=== PATIENT | male | born 1965 | race Caucasian/White ===

== ENCOUNTER 2016-08-28 15:53 | Emergency (ER) | payer OTHER ==
[2016-08-28 16:12] VITALS: BP 112/71; PULSE 89; RESP 16; TEMP 98.4; O2SAT 96
--- NOTE | 2016-08-28 17:05 | EDPHY ---
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 today. The centrifuge lid fell, landing on his right forearm. Denies falling. Did not strike his head. Has no neck or back pain. Denies right shoulder, right elbow , right wrist or hand pain. Reports normal strength. Reports slightly decreased sensation. No previous injury to the right hand. He is right-hand dominant. Anticoagulated on Coumadin for atrial fibrillation. INR 2.0 today. ROS: 10 point review of systems is negative other than as stated in HPI (Fallon Jacobs) Past Medical/Surgical History: Atrial fibrillation, anticoagulated on Coumadin (Fallon Jacobs) Social History: Works at [employer] (Fallon Jacobs) Physical Exam: Vital signs stable, reviewed by me General: Awake, alert, calm, cooperative. No acute distress. Head: Normalocephalic. Atraumatic. EENT: PERRLA. EOMI. Neck: Supple, nontender. No midline tenderness, full ROM. Respiratory: Breathing unlabored. CV: Chest nontender, atraumatic. Radial pulses 2+. Brisk cap refill all extremities. GI: Deferred Neuro: Alert. Oriented x 3. Sensation intact to light touch all extremities, specifically all regions of the right forearm and right hand. Strength 5+. Upper extremity DTRs 2+ biceps and brachial. Skin: Skin warm, dry, intact. No ecchymosis, abrasions, or lacerations. No hematoma. Extremities: No discomfort to palpation of the right shoulder, elbow, wrist, or hand. Full ROM. Mid Right forearm with mild tenderness anteromedially. No hematoma or significant swelling appreciated. (Fallon Jacobs) Constitutional: Initial Vital Signs Temperature (C) 36.9 C 08/28/16 16:07 Heart Rate 89 08/28/16 16:07 Respiratory Rate 16 08/28/16 16:07 Blood Pressure 112/71 08/28/16 16:07 O2 Sat (%) 96 08/28/16 16:07 O2 Delivery Mode Room Air Allergies/Adverse Reactions: latex Allergy (Verified 08/28/16 16:06) Penicillins Allergy (Verified 08/28/16 16:06) Home Medications: Medication Instructions Recorded Coumadin 08/28/16 Flonase Nasal [place]rie 08/28/16 Metoprolol Succinate 08/28/16 Medical Decision Making - Diagnostics Imaging: X-ray negative for evidence of fracture or other acute finding-reviewed by myself-final report pending at time this dictation (Fallon Jacobs) ED Course/Re-evaluation: 50-year-old male presents to emergency department having been 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 today. X-rays negative for evidence of fracture. Sensation is intact. Strength 5+. Range of motion intact right upper extremity. He is referred to occupational health as he reports decreased sensation. (Fallon Jacobs) I did not see this patient while he was in the emergency department. However his x-rays were reviewed by me and I discussed the case with the nurse practitioner while the patient was in the department. I agree with treatment plan and management (Cj Sequeira) Differential Diagnosis: Differential diagnosis includes but is not limited to fracture, contusion, hematoma, compartment syndrome, nerve injury (Fallon Jacobs) Departure - Departure Disposition: Home, Routine, Self-Care Clinical Impression: Contusion of forearm, right, Decreased sensation of forearm Condition: Good Instructions: Contusion in Adults (ED) Additional Instructions: Plan: Follow up with Occupational Health Thursday or Thursday for recheck without fail-- When you call to schedule appointment, please let the office know you are an " ER follow up" appointment" 1000 mg Tylenol every 8 hours as needed ice every 1-2 hours for 20 minutes for the the next 2-3 days If you develop swelling, may apply an Shiva wrap for several hours If you develop severe pain, decreased sensation, or other concerning symptoms return promptly for recheck Referrals: PT,UNSURE [Other] - As per Instructions Stand Alone Forms: Work Excuse
== END 2016-08-28 16:50 | disposition home or self-care (01) ==
DX: S50.11XA Contusion of right forearm, initial encounter (principal); R20.8 Other disturbances of skin sensation; Z91.040 Latex allergy status; Z79.01 Long term (current) use of anticoagulants; W20.8XXA Other cause of strike by thrown, projected or falling object, initial encounter; Y92.238 Other place in hospital as the place of occurrence of the external cause; Y99.0 Civilian activity done for income or pay; Y93.89 Activity, other specified